=== PATIENT | female | born 1980 | race Caucasian/White ===

== ENCOUNTER 2020-04-26 15:58 | Emergency (ER) | payer OTHER, SELFPAY ==
[2020-04-26 16:05] VITALS: BP 171/86; PULSE 94; RESP 18; TEMP 36.8; O2SAT 100; BMI 30.9
--- NOTE | 2020-04-26 16:07 | ED.PREGNANCY ---
HPI - <Ladonna Myers PA-C - Last Filed: 04/26/20 20:59> General Chief complaint: OB/Uterine Contractions Stated complaint: 6wks and bleeding Time Seen by Provider: 04/26/20 16:06 Source: patient Mode of arrival: Ambulatory Limitations: language barrier (patient speaks comoran, not fluent; in room speaks fluent comoran, pt asked (in peruvian by provider if she wants a youth director--she prefers to use )) History of Present Illness HPI Narrative: This is a 39-year-old at 5 weeks 6 days with a history of 3 previous spontaneous first-trimester abortions and fibroids who presents to the emergency department complaining of sudden onset painless vaginal bleeding that began around 330 this afternoon just before presenting to the emergency department. She has not used a pad or tampon but says she has some large blood clots in her underwear. She denies dizziness, syncope, shortness of breath, abdominal pain, pelvic pain, severe bleeding, back pain, nausea, vomiting, diarrhea, fever, chills, body aches or any other symptoms. MD Complaint: vaginal bleeding Onset (ago): minute(s) (45) Pain Consistency: other (painless) Location: pelvis Severity: moderate Associated symptoms: denies other symptoms and vaginal bleeding Vaginal bleeding: clots and other (moderate) Patient : Yes Number of Weeks : 5 weeks 6 days OB History - Current : no complications and other OB History - Previous Pregnancies: miscarriage (3 first trimester) care: followed by OB ([place]) Related Data : 4 Para: 0 Total number of abortions (spontaneous and elective): 3 Home Medications Medication Instructions Recorded Confirmed prenat.vits,ismael,ndc-vinp-fbjvp 1 tab PO DAILY 04/05/19 04/22/20 Allergies Allergy/AdvReac Type Severity Reaction Status Date / Time aspirin Allergy Severe throat Verified 04/22/20 09:04 swelling Penicillins Allergy Mild Rash Verified 04/22/20 09:04 Sulfa (Sulfonamide Allergy Mild Rash Verified 04/22/20 09:04 Antibiotics) Review of Systems <Ladonna Myers PA-C - Last Filed: 04/26/20 20:59> Review of Systems Narrative: GENERAL: Denies chills, fatigue, malaise, fever, sweats. HEENT: Denies sinus pain, ear pain, sore throat, difficulty swallowing, dizziness. RESPIRATORY: Denies dyspnea, cough, wheezing, hemoptysis, sputum. CARDIOVASCULAR: Denies chest pain, palpitations, orthopnea, edema, GASTROINTESTINAL: Denies nausea, vomiting, abdominal pain, diarrhea, constipation, melena. : Positive for vaginal bleeding, Denies dysuria, frequency, incontinence, hematuria, urinary retention. MUSCULOSKELETAL: denies weakness, joint pain, or bony pain SKIN: Denies rash, skin lesions, or other NEUROLOGIC: Denies weakness, headache, numbness, change in speech, confusion, seizures, incoordination. PSYCHIATRIC: No concerning psychosocial issues. 12 point review of systems is negative except for those stated above PMFSH - <Ladonna Myers PA-C - Last Filed: 04/26/20 20:59> Past Medical History Patient : Yes Exam <Ladonna Myers PA-C - Last Filed: 04/26/20 20:59> Narrative Exam Narrative: GENERAL: 39 year old patient appears stated age. Well-nourished, well-developed patient, in mild distress. HEAD: Atraumatic. Normocephalic. EYES: Pupils equal round and reactive. Extraocular motions intact. No scleral icterus. No injection or drainage. ENT: Nose without bleeding, purulent drainage. Throat without erythema, tonsillar hypertrophy or exudate. Airway patent. NECK: Trachea midline. Non tender CARDIOVASCULAR: Regular rate and rhythm without murmurs, gallops, or rubs. RESPIRATORY: Clear to auscultation. Breath sounds equal bilaterally. No wheezes, rales, or rhonchi. GASTROINTESTINAL: Abdomen soft, non-tender, nondistended. : There is slight amuont of blood present on external genitalia, external genitalia without erythema or lesions, on speculum exam there is significant dark red blood in vaginal vault and a large (4cm x3cm) blood clot is removed with ring forceps. Cervix is visualized after multiple faux swabs used to clear vaginal vault of blood. The cervix is closed without active continued bleeding or tissue present in the OS. On bimanual exam there is no tenderness of ovaries or cervical motion tenderness. EXTREMITIES: No edema or joint tenderness. BACK: Nontender without deformity or crepitance. No flank tenderness. NEURO: AOx3. SKIN: No rash or erythema of visible areas Initial Vital Signs Initial Vital Signs: Vital Signs Temperature 98.2 F 04/26/20 16:05 Pulse Rate 94 H 04/26/20 16:05 Respiratory Rate 18 04/26/20 16:05 Blood Pressure 171/86 H 04/26/20 16:05 Pulse Oximetry 100 04/26/20 16:05 <Kobe Puentes DO - Last Filed: 04/27/20 01:35> Initial Vital Signs Initial Vital Signs: Vital Signs Temperature 98.2 F 04/26/20 16:05 Pulse Rate 94 H 04/26/20 16:05 Respiratory Rate 18 04/26/20 16:05 Blood Pressure 171/86 H 04/26/20 16:05 Pulse Oximetry 100 04/26/20 16:05 Procedures <Ladonna Myers PA-C - Last Filed: 04/26/20 20:59> Number of Weeks : 5 weeks 6 days Scores <TEJINDER Vieira Last Filed: 04/26/20 20:59> GCS [place] coma scale eye opening: Spontaneous [place] coma scale verbal response: Orientated [place] coma scale motor response: Obey commands [place] coma scale total score: 15 Course <TEJINDER Vieira Last Filed: 04/26/20 20:59> Course Course Narrative: Labs drawn, Pelvic complete, US arrived. 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 She says the ovaries also looked normal in appearance, she did not need to use transvaginal to complete the exam. 17:14 Orders Ordered: ED Orders 04/26/20 16:40 Wet Prep Tric BV Gu[place]upe Stat 04/26/20 16:45 Chlamydia Gonorrhea PCR -URINE Stat UA Complete [Urinalysis and Microscopic] Stat Urine Culture Stat Discontinued Medications Sodium Chloride (Normal Saline 0.9%) 1,000 mls @ 1,000 mls/hr IV BOLUS ONE Stop: 04/26/20 17:07 Last Infusion: 04/26/20 18:46 Dose: 0 mls/hr Documented by: Admin: 04/26/20 16:24 Dose: 1,000 mls/hr Documented by: RENO Rho Immune Globulin (Hyperrho S-D) 50 unit IM NOW ONE Stop: 04/26/20 18:11 Last Admin: 04/26/20 18:35 Dose: 50 unit Documented by: RENO Vital Signs Vital signs: Vital Signs - 8 hr 04/26/20 18:46 Pulse Rate 90 Respiratory Rate 19 Blood Pressure [Left Arm] 137/79 Pulse Oximetry 100 <Kobe Puentes DO - Last Filed: 04/27/20 01:35> Orders Ordered: ED Orders 04/26/20 16:40 Wet Prep Tric BV [place] Stat 04/26/20 16:45 Chlamydia Gonorrhea PCR -URINE Stat UA Complete [Urinalysis and Microscopic] Stat Urine Culture Stat Discontinued Medications Sodium Chloride (Normal Saline 0.9%) 1,000 mls @ 1,000 mls/hr IV BOLUS ONE Stop: 04/26/20 17:07 Last Infusion: 04/26/20 18:46 Dose: 0 mls/hr Documented by: Admin: 04/26/20 16:24 Dose: 1,000 mls/hr Documented by: RENO Rho Immune Globulin (Hyperrho S-D) 50 unit IM NOW ONE Stop: 04/26/20 18:11 Last Admin: 04/26/20 18:35 Dose: 50 unit Documented by: RENO Vital Signs Vital signs: Vital Signs - 8 hr 04/26/20 18:46 Pulse Rate 90 Respiratory Rate 19 Blood Pressure [Left Arm] 137/79 Pulse Oximetry 100 MDM - OB/Uterine Contractions <Ladonna Myers PA-C - Last Filed: 04/26/20 20:59> Differential Diagnosis Differential diagnosis: Likely other (threatened , vaginal bleeding in , spontaneous , hemorrhage) Medical Records Attestation: I reviewed the patient's medical records. Lab Data Attestation: I reviewed the patient's lab results. Result diagrams: 04/26/20 16:17 04/26/20 16:17 Labs: Lab Results 04/26/20 04/26/20 04/26/20 Range/Units 16:17 16:17 16:17 WBC 13.6 H (4.5-11.0) X10^3/uL RBC 4.93 (4.0-5.2) X10^6/uL Hgb 14.1 (12.0-16.0) g/dL Hct 41.9 (36-46) % MCV 85.0 (80-100) fL MCH 28.6 (26-34) PG MCHC 33.7 (30-36) % RDW 15.2 H (11.6-14.8) % Plt Count 245 (150-400) X10^3/uL Neut % (Auto) 69.8 (50-75) % Lymph % (Auto) 18.9 L (25-40) % [place] % (Auto) 9.0 (3-14) % Eos % (Auto) 1.5 L (2-4) % Baso % (Auto) 0.8 (0-2) % Neut # (Auto) 9500 H (2956-1442) /uL Lymph # (Auto) 2600 (4783-3074) /uL [place] # (Auto) 1200 H (0-900) /uL Eos # (Auto) 200 (0-450) /uL Baso # (Auto) 100 (0-100) /uL Sodium 136 L (137-145) mmol/L Potassium 3.8 (3.4-5.1) mmol/L Chloride 102 (98-107) mmol/L Carbon Dioxide 24 (22-32) mmol/L BUN 12 (7-17) mg/dL Creatinine 0.55 (0.52-1.04) mg/dL Estimated GFR > 60.0 (>60) mL/min BUN/Creatinine Ratio 21.8 (6-22) Glucose 97 (70-100) mg/dL Calcium 10.0 (8.4-10.2) mg/dL Total Bilirubin 0.2 (0.2-1.3) mg/dL AST 24 (14-36) IU/L ALT 16 (<35) IU/L Alkaline Phosphatase 68 (38-126) U/L Total Protein 7.7 (6.3-8.2) g/dL Albumin 4.7 (3.5-5.0) g/dL Globulin 3.0 (1.7-4.1) g/dL Albumin/Globulin Ratio 1.6 (1.0-2.8) HCG, Quant 20041 mIU/mL Urine Color Urine Appearance Urine pH (4.5-8.0) Ur Specific [place] (1.000-1.035) Urine Protein (Negative) Urine Glucose (UA) (Negative) g/dL Urine Ketones (NEGATIVE) Urine Occult Blood (Negative) Urine Nitrate (Negative) Urine Bilirubin (NEGATIVE) Urine Urobilinogen (0.2) E.U./dL Ur Leukocyte Esterase (NEGATIVE) Urine RBC (0-5/HPF) Urine WBC (0-5/HPF) Ur Squamous Epith Cells (0-5/HPF) Urine Bacteria (None) Ur Culture Indicated? Ur Chlamydia DNA (PCR) N gonorrhoeae DNA (PCR) Blood Type O Positive Antibody Screen Negative 04/26/20 04/26/20 Range/Units 16:45 16:45 WBC (4.5-11.0) X10^3/uL RBC (4.0-5.2) X10^6/uL Hgb (12.0-16.0) g/dL Hct (36-46) % MCV (80-100) fL MCH (26-34) PG MCHC (30-36) % RDW (11.6-14.8) % Plt Count (150-400) X10^3/uL Neut % (Auto) (50-75) % Lymph % (Auto) (25-40) % [place] % (Auto) (3-14) % Eos % (Auto) (2-4) % Baso % (Auto) (0-2) % Neut # (Auto) (5932-8108) /uL Lymph # (Auto) (2120-9009) /uL [place] # (Auto) (0-900) /uL Eos # (Auto) (0-450) /uL Baso # (Auto) (0-100) /uL Sodium (137-145) mmol/L Potassium (3.4-5.1) mmol/L Chloride (98-107) mmol/L Carbon Dioxide (22-32) mmol/L BUN (7-17) mg/dL Creatinine (0.52-1.04) mg/dL Estimated GFR (>60) mL/min BUN/Creatinine Ratio (6-22) Glucose (70-100) mg/dL Calcium (8.4-10.2) mg/dL Total Bilirubin (0.2-1.3) mg/dL AST (14-36) IU/L ALT (<35) IU/L Alkaline Phosphatase (38-126) U/L Total Protein (6.3-8.2) g/dL Albumin (3.5-5.0) g/dL Globulin (1.7-4.1) g/dL Albumin/Globulin Ratio (1.0-2.8) HCG, Quant mIU/mL Urine Color Red Urine Appearance Cloudy Urine pH 6.5 (4.5-8.0) Ur Specific [place] 1.010 (1.000-1.035) Urine Protein 2+ H (Negative) Urine Glucose (UA) Negative (Negative) g/dL Urine Ketones Negative (NEGATIVE) Urine Occult Blood 3+ H (Negative) Urine Nitrate Negative (Negative) Urine Bilirubin Negative (NEGATIVE) Urine Urobilinogen 0.2 (0.2) E.U./dL Ur Leukocyte Esterase Negative (NEGATIVE) Urine RBC >100/hpf H (0-5/HPF) Urine WBC 5-10/hpf H (0-5/HPF) Ur Squamous Epith Cells 0-1 /hpf (0-5/HPF) Urine Bacteria Occasional (0-1) (None) Ur Culture Indicated? Specimen cultured Ur Chlamydia DNA (PCR) Not detected N gonorrhoeae DNA (PCR) Not detected Blood Type Antibody Screen Imaging Data US - OB: Attestation: I personally reviewed and interpreted this imaging study as follows: Radiologist's Impression: [place] [address] Ultrasound Report Signed Patient: Sonia Garcia#: [id number] : 1980Acct:[id number] Age/Sex: 39 / FDate of Service: 04/26/20 Loc: ED Accession Number: [id number] Procedure: US OB <= 14 weeks fetus Ordering Provider: Ladonna Myers P.A-C PROCEDURE: US OB <= 14 WEEKS FETUS INDICATIONS: VAGINAL BLEEDING IN FIRST TRIMESTER OUTSIDE/PRIOR DATING DATA: Last menstrual period (LMP): 03/01/20. LMP-based estimated date of delivery (JOSELYN): 12/16/20. First dating scan (date and location): 04/26/20, [facility]. Estimated date of delivery (JOSELYN) from first dating scan: 12/11/20 TECHNIQUE: Real-time scanning was performed of the fetus and maternal pelvic organs, with image documentation. COMPARISON: None. FINDINGS: Embryo: Living first trimester intrauterine with crown-rump length and heart beat measuring 7 weeks 2 days. Heart rate is 152 beats per minute. A yolk sac is present. Measurement variability in dating: +/- 4 weeks by LMP, +/- 7 days by mean sac diameter (use before 6 weeks gestation if crown-rump length not able to be measured), +/- 5 days by crown-rump length (up to 8 weeks 6 days gestation), +/- 7 days by crown-rump length (up to 13 weeks 6 days gestation). Maternal organs: Uterus: There are 2 uterine fibroids, the larger of which measures 3.4 x 2.7 x 3.4 cm, and the smaller of which measures 2.5 x 2.2 x 2.4 cm. There are 2 perigestational bleeds. Superior to the intrauterine is a 2.1 x 0.8 x 1.6 cm bleed. Inferior to the intrauterine is a 1.7 x 1.1 x 2.0 cm perigestational bleed. A right ovarian corpus luteum is noted. Limited images through the kidneys demonstrate no hydronephrosis. IMPRESSION: 1. Living early first trimester intrauterine with crown-rump length measuring 7 weeks 2 days. 2. Small ferdinand-gestational hemorrhages 3. Uterine fibroids. Comment: Preliminary findings were reported by the director talent to the referring provider at the time of study completion. Dictated by: Crescencio Reeves M.D. on 04/26/2020 at 16:31 Approved by: Crescencio Reeves M.D. on 04/26/2020 at 16:37 MDM Narrative Medical decision making narrative: This is a well-appearing 39-year-old at 5 weeks and 6 days with a history of 3 spontaneous abortions, fibroids, in the 1st trimester who presents to the emergency department complaining of sudden onset of painless vaginal bleeding that began around 3:30 p.m. just before coming to the emergency department. She presents with her . Medical charts reviewed. Differential diagnoses considered include spontaneous , threatened , hemorrhage, vaginal bleeding in 1st trimester, STI, infection Based on exam and ultrasound, she currently has a viable IUP, but with the not in significant bleeding she had, there is a risk this could progress to a spontaneous . Ob on-call was consulted and advised to do just 50mcg of RhoGAM given that she is Rh negative but very early in and otherwise expectant management with follow-up in clinic for repeat ultrasound early next week. Patient was advised to call her OB in the morning and set up a follow-up appointment. She was provided with emergency return precautions and all questions were answered. <Kobe Puentes, - Last Filed: 04/27/20 01:35> Lab Data Labs: Lab Results 04/26/20 04/26/20 04/26/20 Range/Units 16:17 16:17 16:17 WBC 13.6 H (4.5-11.0) X10^3/uL RBC 4.93 (4.0-5.2) X10^6/uL Hgb 14.1 (12.0-16.0) g/dL Hct 41.9 (36-46) % MCV 85.0 (80-100) fL MCH 28.6 (26-34) PG MCHC 33.7 (30-36) % RDW 15.2 H (11.6-14.8) % Plt Count 245 (150-400) X10^3/uL Neut % (Auto) 69.8 (50-75) % Lymph % (Auto) 18.9 L (25-40) % [place] % (Auto) 9.0 (3-14) % Eos % (Auto) 1.5 L (2-4) % Baso % (Auto) 0.8 (0-2) % Neut # (Auto) 9500 H (2756-9447) /uL Lymph # (Auto) 2600 (5734-9939) /uL [place] # (Auto) 1200 H (0-900) /uL Eos # (Auto) 200 (0-450) /uL Baso # (Auto) 100 (0-100) /uL Sodium 136 L (137-145) mmol/L Potassium 3.8 (3.4-5.1) mmol/L Chloride 102 (98-107) mmol/L Carbon Dioxide 24 (22-32) mmol/L BUN 12 (7-17) mg/dL Creatinine 0.55 (0.52-1.04) mg/dL Estimated GFR > 60.0 (>60) mL/min BUN/Creatinine Ratio 21.8 (6-22) Glucose 97 (70-100) mg/dL Calcium 10.0 (8.4-10.2) mg/dL Total Bilirubin 0.2 (0.2-1.3) mg/dL AST 24 (14-36) IU/L ALT 16 (<35) IU/L Alkaline Phosphatase 68 (38-126) U/L Total Protein 7.7 (6.3-8.2) g/dL Albumin 4.7 (3.5-5.0) g/dL Globulin 3.0 (1.7-4.1) g/dL Albumin/Globulin Ratio 1.6 (1.0-2.8) HCG, Quant 83941 mIU/mL Urine Color Urine Appearance Urine pH (4.5-8.0) Ur Specific [place] (1.000-1.035) Urine Protein (Negative) Urine Glucose (UA) (Negative) g/dL Urine Ketones (NEGATIVE) Urine Occult Blood (Negative) Urine Nitrate (Negative) Urine Bilirubin (NEGATIVE) Urine Urobilinogen (0.2) E.U./dL Ur Leukocyte Esterase (NEGATIVE) Urine RBC (0-5/HPF) Urine WBC (0-5/HPF) Ur Squamous Epith Cells (0-5/HPF) Urine Bacteria (None) Ur Culture Indicated? Ur Chlamydia DNA (PCR) N gonorrhoeae DNA (PCR) Blood Type O Positive Antibody Screen Negative 04/26/20 04/26/20 Range/Units 16:45 16:45 WBC (4.5-11.0) X10^3/uL RBC (4.0-5.2) X10^6/uL Hgb (12.0-16.0) g/dL Hct (36-46) % MCV (80-100) fL MCH (26-34) PG MCHC (30-36) % RDW (11.6-14.8) % Plt Count (150-400) X10^3/uL Neut % (Auto) (50-75) % Lymph % (Auto) (25-40) % [place] % (Auto) (3-14) % Eos % (Auto) (2-4) % Baso % (Auto) (0-2) % Neut # (Auto) (8319-2518) /uL Lymph # (Auto) (1579-2862) /uL [place] # (Auto) (0-900) /uL Eos # (Auto) (0-450) /uL Baso # (Auto) (0-100) /uL Sodium (137-145) mmol/L Potassium (3.4-5.1) mmol/L Chloride (98-107) mmol/L Carbon Dioxide (22-32) mmol/L BUN (7-17) mg/dL Creatinine (0.52-1.04) mg/dL Estimated GFR (>60) mL/min BUN/Creatinine Ratio (6-22) Glucose (70-100) mg/dL Calcium (8.4-10.2) mg/dL Total Bilirubin (0.2-1.3) mg/dL AST (14-36) IU/L ALT (<35) IU/L Alkaline Phosphatase (38-126) U/L Total Protein (6.3-8.2) g/dL Albumin (3.5-5.0) g/dL Globulin (1.7-4.1) g/dL Albumin/Globulin Ratio (1.0-2.8) HCG, Quant mIU/mL Urine Color Red Urine Appearance Cloudy Urine pH 6.5 (4.5-8.0) Ur Specific [place] 1.010 (1.000-1.035) Urine Protein 2+ H (Negative) Urine Glucose (UA) Negative (Negative) g/dL Urine Ketones Negative (NEGATIVE) Urine Occult Blood 3+ H (Negative) Urine Nitrate Negative (Negative) Urine Bilirubin Negative (NEGATIVE) Urine Urobilinogen 0.2 (0.2) E.U./dL Ur Leukocyte Esterase Negative (NEGATIVE) Urine RBC >100/hpf H (0-5/HPF) Urine WBC 5-10/hpf H (0-5/HPF) Ur Squamous Epith Cells 0-1 /hpf (0-5/HPF) Urine Bacteria Occasional (0-1) (None) Ur Culture Indicated? Specimen cultured Ur Chlamydia DNA (PCR) Not detected N gonorrhoeae DNA (PCR) Not detected Blood Type Antibody Screen Discharge Plan Departure Patient Disposition: Home Clinical Impression: Vaginal bleeding affecting early Qualifiers: Weeks of gestation: less than 8 weeks Qualified Code(s): Z3A.01 - Less than 8 weeks gestation of Discharge Date/Time: 04/26/20 19:28 Instructions: DI for Vaginal Bleeding During , Early Bleeding Activity Restrictions/Additional Instructions: Thank you for letting us to be part of your care today in the emergency department. There is no evidence of an emergent or life threatening illness at this time, but follow up with your doctor in 1-2 days is recommended nonetheless to continue to rule out serious underlying causes of your symptoms. Please call the office for an appointment. Please return to the Emergency Department for any worsening or persistent symptoms. Please take medications as directed. I recommend that you follow-up with Dr. melendez or another person in your Systems Security Consultant group in the next 1-2 days for follow-up ultrasound and labs as needed. If you have worsening or persistent symptoms including dizziness, lightheadedness, nausea, vomiting, fever or chills, ongoing vaginal bleeding that is heavier than a normal period or anything else of concern to you please seek medical care. You can take Tylenol as needed for pain. Prescriptions: No Action prenat.vits,ismael,vzy-sotv-zaqmt tablet 1 tab PO DAILY RF: 0 Referrals: Korin Melendez MD [Physician] - Stand Alone Forms: Work Release Note <Kobe Puentes DO - Last Filed: 04/27/20 01:35> Cosign ED Attending Cosignature Attestation: I was immediately available in the department for consultation. This documentation has been reviewed and I agree with assessment and plan. Supervised by Kobe Puentes DO
[2020-04-26] MEDS: SODIUM CHLORIDE 0.9% 1,000 ML 1000 ML IV (16:24)
[2020-04-26 16:28] LABS: Add Manual Diff / Slide Review NO; Basophils Absolute Auto 100 /uL (0-100); Basophils Percent Auto 0.8 % (0-2); Eosinophils Absolute Auto 200 /uL (0-450); Eosinophils Percent Auto 1.5 % (2-4); Hematocrit 41.9 % (36-46); Hemoglobin 14.1 g/dL (12.0-16.0); Lymphocytes Absolute Auto 2600 /uL (1100-4500); Lymphocytes Percent Auto 18.9 % (25-40); Mean Corpuscular HGB Conc 33.7 % (30-36); Mean Corpuscular Hemoglobin 28.6 PG (26-34); Monocytes Absolute Auto 1200 /uL (0-900); Neutrophils Absolute Auto 9500 /uL (1500-7000); Neutrophils Percent Auto 69.8 % (50-75); Platelet Count 245 X10^3/uL (150-400); Red Blood Cell Count 4.93 X10^6/uL (4.0-5.2); Red Cell Distribution Width 15.2 % (11.6-14.8); White Blood Cell Count 13.6 X10^3/uL (4.5-11.0)
[2020-04-26 16:44] LABS: Alanine Aminotransferase 16 IU/L (<35); Albumin 4.7 g/dL (3.5-5.0); Albumin Globulin Ratio 1.6 (1.0-2.8); Alkaline Phosphatase 68 U/L (38-126); Aspartate Aminotransferase 24 IU/L (14-36); BUN Creatinine Ratio 21.8 (6-22); Bilirubin Total 0.2 mg/dL (0.2-1.3); Blood Urea Nitrogen 12 mg/dL (7-17); Carbon Dioxide 24 mmol/L (22-32); Chloride 102 mmol/L (98-107); Estimated Glomerular Filt Rate > 60.0 mL/min (>60); Glucose 97 mg/dL (70-100); HEMOLYSIS < 15 (0-50); Potassium 3.8 mmol/L (3.4-5.1); Sodium 136 mmol/L (137-145); Total Protein 7.7 g/dL (6.3-8.2)
[2020-04-26 17:01] LABS: Appearance Urine UA CLOUDY; Bilirubin Urine UA NEGATIVE (NEGATIVE); Color Urine UA RED; Glucose Urine UA NEGATIVE (Negative); Ketones Urine UA NEGATIVE (NEGATIVE); Nitrite Urine UA NEGATIVE (Negative); Occult Blood Urine UA 3+ (Negative); Protein Urine UA 2+ (Negative); Urobilinogen Urine UA 0.2 E.U./dL (0.2)
[2020-04-26 17:03] LABS: Leukocyte Esterase Urine UA NEGATIVE (NEGATIVE); pH Urine UA 6.5 (4.5-8.0)
[2020-04-26 17:07] LABS: Bacteria Urine Occasional (0-1); Culture Indicated Urine Specimen Cultured; RBC Urine >100/HPF (0-5/HPF); Squamous Epithelial Cell Urine 0-1 /HPF (0-5/HPF); WBC Urine 5-10/HPF (0-5/HPF)
[2020-04-26 17:26] LABS: HCG Quantitative /Beta subunit 56643 mIU/mL
[2020-04-26 17:28] VITALS: BP 149/73; PULSE 90; RESP 17; O2SAT 100
[2020-04-26] MEDS: RHO(D) IMMUNE GLOBULIN 1,500 UNIT SYRINGE 50 UNIT IM (18:35)
[2020-04-26 18:46] VITALS: BP 137/79; PULSE 90; RESP 19; O2SAT 100
[2020-04-26 20:08] LABS: Urine N gonorrhoeae NOT DETECTED
[2020-04-26 20:10] LABS: Urine Chlamydia NOT DETECTED
== END 2020-04-26 19:28 | disposition home or self-care (01) ==
PROVIDERS: Emergency Provider Student in an Organized Health Care Education/Training Program
DX: O20.9 Hemorrhage in early pregnancy, unspecified (principal); Z3A.01 Less than 8 weeks gestation of pregnancy
CPT/HCPCS: 36415; 76801; 80053; 81001; 84702; 85025; 86850; 86900; 86901; 87086; 87210; 87491; 87591; 96360; 96361; 96372; 99284; J2790

== ENCOUNTER → 2020-05-08 11:00 | Outpatient (CLI) | payer OTHER, SELFPAY ==
[2020-05-08 12:33] LABS: Add Manual Diff / Slide Review NO; Basophils Absolute Auto 100 /uL (0-100); Basophils Percent Auto 0.5 % (0-2); Eosinophils Absolute Auto 100 /uL (0-450); Eosinophils Percent Auto 1.1 % (2-4); Hematocrit 41.1 % (36-46); Hemoglobin 13.9 g/dL (12.0-16.0); Lymphocytes Absolute Auto 1400 /uL (1100-4500); Lymphocytes Percent Auto 12.7 % (25-40); Mean Corpuscular HGB Conc 33.9 % (30-36); Mean Corpuscular Hemoglobin 29.1 PG (26-34); Monocytes Absolute Auto 700 /uL (0-900); Monocytes Percent Auto 6.5 % (3-14); Neutrophils Absolute Auto 9000 /uL (1500-7000); Neutrophils Percent Auto 79.2 % (50-75); Platelet Count 249 X10^3/uL (150-400); Red Blood Cell Count 4.79 X10^6/uL (4.0-5.2); Red Cell Distribution Width 14.8 % (11.6-14.8); White Blood Cell Count 11.3 X10^3/uL (4.5-11.0)
[2020-05-08 15:02] LABS: TSH w/ Reflex to FT4 1.55 uIU/mL (0.47-4.68)
== END ==
PROVIDERS: Referring Provider Obstetrics & Gynecology; Visit Provider Obstetrics & Gynecology
DX: O20.9 Hemorrhage in early pregnancy, unspecified (principal)
CPT/HCPCS: 36415; 84443; 85025

== ENCOUNTER → 2020-05-22 13:49 | Outpatient (CLI) | payer OTHER, SELFPAY ==
[2020-05-22 14:23] LABS: Add Manual Diff / Slide Review NO; Basophils Absolute Auto 100 /uL (0-100); Basophils Percent Auto 0.5 % (0-2); Eosinophils Absolute Auto 100 /uL (0-450); Eosinophils Percent Auto 0.9 % (2-4); Hematocrit 42.5 % (36-46); Hemoglobin 14.1 g/dL (12.0-16.0); Lymphocytes Absolute Auto 1400 /uL (1100-4500); Lymphocytes Percent Auto 11.9 % (25-40); Mean Corpuscular HGB Conc 33.2 % (30-36); Mean Corpuscular Hemoglobin 28.6 PG (26-34); Mean Corpuscular Volume 86.2 fL (80-100); Monocytes Absolute Auto 700 /uL (0-900); Monocytes Percent Auto 6.2 % (3-14); Neutrophils Absolute Auto 9600 /uL (1500-7000); Neutrophils Percent Auto 80.5 % (50-75); Platelet Count 244 X10^3/uL (150-400); Red Blood Cell Count 4.94 X10^6/uL (4.0-5.2); Red Cell Distribution Width 14.5 % (11.6-14.8); White Blood Cell Count 11.9 X10^3/uL (4.5-11.0)
[2020-05-22 14:34] LABS: Alanine Aminotransferase 17 IU/L (<35); Albumin 4.5 g/dL (3.5-5.0); Albumin Globulin Ratio 1.5 (1.0-2.8); Alkaline Phosphatase 62 U/L (38-126); Aspartate Aminotransferase 24 IU/L (14-36); BUN Creatinine Ratio 17.9 (6-22); Bilirubin Total 0.3 mg/dL (0.2-1.3); Blood Urea Nitrogen 7 mg/dL (7-17); Carbon Dioxide 20 mmol/L (22-32); Chloride 103 mmol/L (98-107); Estimated Glomerular Filt Rate > 60.0 mL/min (>60); Glucose 107 mg/dL (70-100); HEMOLYSIS < 15 (0-50); Hemoglobin A1C% w Est Avg Glu 5.2 % (4.0-6.0); Lactate Dehydrogenase 337 U/L (313-618); Potassium 3.9 mmol/L (3.4-5.1); Sodium 135 mmol/L (137-145); Total Protein 7.5 g/dL (6.3-8.2); Uric Acid 3.6 mg/dL (2.5-6.2)
[2020-05-22 15:37] LABS: Creatinine Urine Random 35.1 mg/dL; Protein (Total) Urine Random 14 mg/dL (0-12); Protein Creatinine Ratio Urine 0.39 GRAM/24H
[2020-05-22 16:35] LABS: Urine N gonorrhoeae NOT DETECTED
[2020-05-22 16:59] LABS: Urine Chlamydia NOT DETECTED
[2020-05-23 05:11] LABS: RPR Screen Non Reactive (Non Reactive)
[2020-05-23 06:36] LABS: Varicella IgG Antibody <135 index (Immune >165)
[2020-05-25 17:06] LABS: Hepatitis B Surface Antigen NEGATIVE s/c (NEGATIVE); Rubella Antibody IgG 37.2 IU/mL (>15)
[2020-05-25 17:39] LABS: HIV 1 & 2 Ab/Ag 4th Gen Combo NEGATIVE (NEGATIVE); Hep C Virus Ab w/Reflex Quant NEGATIVE s/c (NEGATIVE)
== END ==
PROVIDERS: Referring Provider Obstetrics & Gynecology; Visit Provider Obstetrics & Gynecology
DX: Z34.81 Encounter for supervision of other normal pregnancy, first trimester (principal); Z11.3 Encounter for screening for infections with a predominantly sexual mode of transmission; Z3A.10 10 weeks gestation of pregnancy
CPT/HCPCS: 36415; 80053; 80055; 82570; 83036; 83615; 84156; 84550; 86787; 86803; 86850; 87077; 87086; 87186; 87389; 87491; 87591

== ENCOUNTER 2020-09-08 03:36 | Observation (INO) | payer OTHER, SELFPAY ==
[2020-09-08 03:55] LABS: WBC Urine None Seen (0-5/HPF)
[2020-09-08 03:56] LABS: Appearance Urine UA CLEAR; Bilirubin Urine UA NEGATIVE (NEGATIVE); Color Urine UA YELLOW; Glucose Urine UA NEGATIVE (Negative); Ketones Urine UA NEGATIVE (NEGATIVE); Leukocyte Esterase Urine UA NEGATIVE (NEGATIVE); Nitrite Urine UA NEGATIVE (Negative); Occult Blood Urine UA TRACE-LYSED (Negative); Protein Urine UA NEGATIVE (Negative); Urobilinogen Urine UA 0.2 E.U./dL (0.2)
[2020-09-08 04:13] LABS: Bacteria Urine Moderate (10-30); Culture Indicated Urine Cult Not Indicated; RBC Urine 0-1/HPF (0-5/HPF); Squamous Epithelial Cell Urine >30 /HPF (0-5/HPF)
[2020-09-08] MEDS: LACTATED RINGERS 1,000 ML 1000 ML IV (04:45)
[2020-09-08] MEDS: NIFEdipine 10 MG CAPSULE PO ×3 (05:45→06:23)
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
--- NOTE | 2020-09-08 07:47 | DI.US.S_ITS ---
PROCEDURE: US OB LIMITED INDICATIONS: 26 WEEK GESTATION OUTSIDE/PRIOR DATING DATA: Last menstrual period (LMP): 03/11/2020. LMP-based estimated date of delivery (JOSELYN): 12/16/2020 First dating scan (date and location): 04/26/2020 Estimated date of delivery (JOSELYN) from first dating scan: 12/11/2020 TECHNIQUE: Real-time scanning was performed of the fetus, with image documentation and biometric measurements. Endovaginal scanning: Not performed COMPARISON: None. FINDINGS: General: A single living intrauterine gestation is present. Presentation: Breech Placenta: Placental position is anterior, without previa. Amniotic fluid index: 18.4 cm, normal range is 5-24 cm. Largest pocket measures 6.2 cm. heart rate: 153 beats per minute. Maternal cervical canal: 4.3 cm long. Normal lower limit is 2.5 cm. Estimated gestational age from initial scan: 26 week 4 days Other: Gross movement is noted during the study. IMPRESSION: 1. Single live intrauterine with fetus in breech presentation. heart rate is 153 beats per minute. Normal amount of amniotic fluid. No evidence of placenta previa. 2. Gross movement was noted during the study. Dictated by: Tk Powers M.D. on 09/08/2020 at 8:30 Approved by: Tk Powers M.D. on 09/08/2020 at 8:32
== END 2020-09-08 08:31 | disposition home or self-care (01) ==
PROVIDERS: Admitting Provider Obstetrics & Gynecology; PCP Obstetrics & Gynecology; Referring Provider Obstetrics & Gynecology; Visit Provider Obstetrics & Gynecology
DX: O34.12 Maternal care for benign tumor of corpus uteri, second trimester (principal); O26.22 Pregnancy care for patient with recurrent pregnancy loss, second trimester; O09.522 Supervision of elderly multigravida, second trimester; Z3A.25 25 weeks gestation of pregnancy
CPT/HCPCS: 59025; 59050; 76815; 81001; 96360; G0378; G0379

== ENCOUNTER → 2020-09-15 09:25 | Outpatient (CLI) | payer OTHER, SELFPAY ==
[2020-09-15 12:20] LABS: Hematocrit 37.2 % (36-46); Hemoglobin 12.4 g/dL (12.0-16.0)
[2020-09-15 13:02] LABS: GTT (PREG) 1 Hour PP 50gm Dose 178 mg/dL (76-139)
== END ==
PROVIDERS: Referring Provider Obstetrics & Gynecology; Visit Provider Obstetrics & Gynecology
DX: Z34.82 Encounter for supervision of other normal pregnancy, second trimester (principal); Z3A.26 26 weeks gestation of pregnancy
CPT/HCPCS: 36415; 82950; 85014; 85018

== ENCOUNTER → 2020-09-16 06:53 | Outpatient (CLI) | payer OTHER, SELFPAY ==
[2020-09-16 08:35] LABS: Glucose 1 Hour 232 mg/dL (70-170)
[2020-09-16 08:41] LABS: Glucose Fasting 87 mg/dL (70-100)
[2020-09-16 09:46] LABS: Glucose 2 Hour 191 mg/dL (70-140)
[2020-09-16 10:14] LABS: Glucose Tol Interpretation INTERPRETATION
[2020-09-16 11:31] LABS: Glucose 3 Hour 80 mg/dL (70-115)
== END ==
PROVIDERS: Referring Provider Obstetrics & Gynecology; Visit Provider Obstetrics & Gynecology
DX: R73.09 Other abnormal glucose (principal); Z3A.01 Less than 8 weeks gestation of pregnancy
CPT/HCPCS: 36415; 82951; 82952

== ENCOUNTER 2020-09-21 10:27 | Outpatient (CLI) | payer OTHER, SELFPAY ==
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
== END 2020-09-21 11:35 | disposition home or self-care (01) ==
LOC: OB 09-22 07:40
PROVIDERS: Referring Provider Obstetrics & Gynecology; Visit Provider Obstetrics & Gynecology
DX: O34.12 Maternal care for benign tumor of corpus uteri, second trimester (principal); O26.22 Pregnancy care for patient with recurrent pregnancy loss, second trimester; O09.522 Supervision of elderly multigravida, second trimester; Z3A.27 27 weeks gestation of pregnancy
CPT/HCPCS: 59025; G0378; G0379

== ENCOUNTER 2020-09-29 09:24 | Outpatient (CLI) | payer OTHER, SELFPAY ==
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
== END 2020-09-29 10:45 | disposition home or self-care (01) ==
LOC: LABOR 09:42 → OB 10-20 09:40
PROVIDERS: Referring Provider Obstetrics & Gynecology; Visit Provider Obstetrics & Gynecology
DX: O34.13 Maternal care for benign tumor of corpus uteri, third trimester (principal); O24.419 Gestational diabetes mellitus in pregnancy, unspecified control; O26.23 Pregnancy care for patient with recurrent pregnancy loss, third trimester; O09.523 Supervision of elderly multigravida, third trimester; Z3A.28 28 weeks gestation of pregnancy
CPT/HCPCS: 59025; G0378; G0379

== ENCOUNTER → 2020-09-29 10:46 | Outpatient (CLI) | payer OTHER, SELFPAY ==
--- NOTE | 2020-09-29 11:51 | DIET.PN ---
INITIAL GESTATIONAL DIABETES ASSESSMENT ASSESS:? Ms. Rosenberg was seen for gestational diabetes. This is her first . She reports no knows family history of diabetes. She has been monitoring and recording her glucose for the past week, 6-7x/day. She has reported any elevated glucose with what she ate that meal. She typically eats popular foods including rice, beans, tortillas and eggs w/ cheese. She has been doing a 15 min exercise video daily. ? JOSELYN:?Dec 16 ? WKS GESTATION:?? 29 weeks ?LABS: A1c: 5.2 3hr GTT: fb 1h: 232 2h: 191 3h: 80 FB-108 1 hrPP: 80-126 (163x1) ? MEDS: vit ? DIET:? B: egg, ham, toast, water, almond milk L: rice, beans, chicken, water D: same as lunch, broccoli, tomato, cabbage Sn: tortilla w/ cheese, fruit, ? HT:? 62in ? PRE-PREG WT:? 169lb ? PRE-PREG BMI:??? 31 ? CURRENT WT: 178lb ? TOTAL WT GAIN:? 9 lb EXERCISE: 15 min you tube video NUTRITION DX 1. Altered nutrition related lab values r/t gestational diabetes as evidenced by recent labs (OGGT). INTERVENTION 1. Discussed pathophysiology of gestational diabetes and impact of hormone and nutrition/diet on blood sugar control.? Discussed fed versus non-fed state.? 2. Recommended checking fasting, pre-meal and 1hr post prandial (3x/day).? Discussed goals for glycemic control (<95 FBG, <140 1-hr PP).? 3. Discussed the effect of carbohydrates/protein/fat on blood sugar control.? Stressed importance of consistent carbohydrate intake at each meal and provided instructions for recommended servings/portions of carbohydrates/protein per meal.? Provided pt with educational material. 4. Introduced carbohydrate counting and measuring carbohydrate content via servings sizes and reading nutrition labels.? Provided handouts.? Pt will need further review 5. Discussed importance of meal timing and not going >3 hours between meals.? Provided sample meal schedule for pt.? Pt agreeable.?? 6. Discussed importance a pre-aidan vitamin and including food sources of calcium, vitamin D, iron and folic acid for baby and mother?s nutrition support. 7. Discussed caffeine intake. Recommend no more than 200 mg/day (1 cup coffee). 8. Discussed rule of 15 for hypoglycemia. 9. Recommend patient purchase Urine Ketone strips and instructed on use and when to contact provider. 10. Recommended patient continue exercise as appropriate per PCP approval. 11. Patient may need medication management, will follow-up with plan of care at next visit after reviewing glucose results.? MONITOR/EVAL: Follow up scheduled X 1 week. Good compliance expected. Review: carb sources, carb counting, portion size, meal timing, BG log, weight.
== END ==
PROVIDERS: PCP Obstetrics & Gynecology; Referring Provider Obstetrics & Gynecology; Visit Provider Obstetrics & Gynecology
DX: O24.419 Gestational diabetes mellitus in pregnancy, unspecified control (principal); Z3A.29 29 weeks gestation of pregnancy; Z71.3 Dietary counseling and surveillance
CPT/HCPCS: 97802

== ENCOUNTER 2020-10-05 10:11 | Outpatient (CLI) | payer OTHER, SELFPAY ==
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
== END 2020-10-05 10:22 | disposition home or self-care (01) ==
LOC: OB 10-06 09:28
PROVIDERS: PCP Obstetrics & Gynecology; Referring Provider Obstetrics & Gynecology; Visit Provider Obstetrics & Gynecology
DX: O24.419 Gestational diabetes mellitus in pregnancy, unspecified control (principal); O34.13 Maternal care for benign tumor of corpus uteri, third trimester; O09.523 Supervision of elderly multigravida, third trimester; O26.23 Pregnancy care for patient with recurrent pregnancy loss, third trimester; Z3A.29 29 weeks gestation of pregnancy
CPT/HCPCS: 59025; G0378; G0379

== ENCOUNTER 2020-10-12 13:44 | Outpatient (CLI) | payer OTHER, SELFPAY ==
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
== END 2020-10-12 14:35 | disposition home or self-care (01) ==
LOC: OB 10-20 09:40
PROVIDERS: Referring Provider Obstetrics & Gynecology; Visit Provider Obstetrics & Gynecology
DX: O24.419 Gestational diabetes mellitus in pregnancy, unspecified control (principal); O34.13 Maternal care for benign tumor of corpus uteri, third trimester; O09.523 Supervision of elderly multigravida, third trimester; O26.23 Pregnancy care for patient with recurrent pregnancy loss, third trimester; Z3A.30 30 weeks gestation of pregnancy
CPT/HCPCS: 59025; G0378; G0379

== ENCOUNTER 2020-10-19 14:11 | Observation (INO) | payer OTHER, SELFPAY | END 2020-10-19 16:15 | disposition home or self-care (01) | PROVIDERS: Admitting Provider Obstetrics & Gynecology; Referring Provider Obstetrics & Gynecology; Visit Provider Obstetrics & Gynecology | DX: O24.419 Gestational diabetes mellitus in pregnancy, unspecified control (principal); O34.13 Maternal care for benign tumor of corpus uteri, third trimester; O09.523 Supervision of elderly multigravida, third trimester; O26.23 Pregnancy care for patient with recurrent pregnancy loss, third trimester; Z3A.31 31 weeks gestation of pregnancy | CPT/HCPCS: 59025; 59050; G0378; G0379 ==

== ENCOUNTER 2020-10-27 15:28 | Outpatient (CLI) | payer OTHER, SELFPAY ==
[2020-10-27 15:55] VITALS: TEMP 36.2
[2020-10-27] MEDS: ACETAMINOPHEN 325 MG TABLET 650 MG PO (15:55)
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
[2020-10-27 16:00] LABS: Add Manual Diff / Slide Review NO; Basophils Absolute Auto 100 /uL (0-100); Basophils Percent Auto 0.6 % (0-2); Eosinophils Absolute Auto 100 /uL (0-450); Eosinophils Percent Auto 0.8 % (2-4); Hematocrit 39.2 % (36-46); Hemoglobin 13.4 g/dL (12.0-16.0); Lymphocytes Absolute Auto 1500 /uL (1100-4500); Lymphocytes Percent Auto 14.9 % (25-40); Mean Corpuscular HGB Conc 34.2 % (30-36); Mean Corpuscular Hemoglobin 31.2 PG (26-34); Monocytes Absolute Auto 1000 /uL (0-900); Monocytes Percent Auto 9.4 % (3-14); Neutrophils Absolute Auto 7600 /uL (1500-7000); Neutrophils Percent Auto 74.3 % (50-75); Platelet Count 177 X10^3/uL (150-400); Red Blood Cell Count 4.31 X10^6/uL (4.0-5.2); Red Cell Distribution Width 13.9 % (11.6-14.8); White Blood Cell Count 10.2 X10^3/uL (4.5-11.0)
[2020-10-27 16:16] LABS: Aspartate Aminotransferase 22 IU/L (14-36); Blood Urea Nitrogen 10 mg/dL (7-17); Estimated Glomerular Filt Rate > 60.0 mL/min (>60); Uric Acid 3.8 mg/dL (2.5-6.2)
== END 2020-10-27 16:05 | disposition home or self-care (01) ==
LOC: LABOR 15:41 → OB 11-01 11:01
PROVIDERS: Referring Provider Obstetrics & Gynecology; Visit Provider Obstetrics & Gynecology
DX: O24.419 Gestational diabetes mellitus in pregnancy, unspecified control (principal); O34.13 Maternal care for benign tumor of corpus uteri, third trimester; O09.523 Supervision of elderly multigravida, third trimester; O26.23 Pregnancy care for patient with recurrent pregnancy loss, third trimester; Z3A.32 32 weeks gestation of pregnancy
CPT/HCPCS: 36415; 59025; 84450; 84550; 85025; G0378; G0379

== ENCOUNTER 2020-11-03 15:56 | Outpatient (CLI) | payer OTHER, SELFPAY ==
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
== END 2020-11-03 16:50 | disposition home or self-care (01) ==
LOC: LABOR 16:20 → OB 11-05 08:46
PROVIDERS: Referring Provider Obstetrics & Gynecology; Visit Provider Obstetrics & Gynecology
DX: O34.13 Maternal care for benign tumor of corpus uteri, third trimester (principal); O09.523 Supervision of elderly multigravida, third trimester; O26.23 Pregnancy care for patient with recurrent pregnancy loss, third trimester; O24.419 Gestational diabetes mellitus in pregnancy, unspecified control; Z3A.33 33 weeks gestation of pregnancy
CPT/HCPCS: 59025; G0378; G0379